=== PATIENT | female | born 1990 | race Two or more races ===

== ENCOUNTER 2023-11-18 11:32 | Emergency (ER) | payer OTHER ==
[~2023-11-18] VITALS: Ht 167.6 cm; Wt 74.8 kg
[2023-11-18 15:10] LABS: HEMATOCRIT 41.7 % (36.0-45.00); HEMOGLOBIN 14.4 g/dL (12.0-15.00); MEAN CELL VOLUME 90.3 fL (80.00-100.00); MEAN CORPUSCULAR HEMOGLOBIN 31.2 pg (27.00-32.0); MEAN CORPUSCULAR HGB CONC 34.5 g/dl (32.0-36.0); PLATELET COUNT 204 K/uL (150-450); RED BLOOD COUNT 4.62 M/uL (4.00-6.00); RED CELL DISTRIBUTION WIDTH 12.2 % (11.5-14.5)
[2023-11-18 15:42] LABS: CALCIUM 9.1 mg/dL (8.5-10.1); CREATININE SERUM 0.69 mg/dL (0.55-1.02); GFR 97.39; POTASSIUM 4.02 mEq/L (3.5-5.1)
[2023-11-18 16:14] LABS: URINE APPEARANCE Clear; URINE BILIRRUBIN Negative (NEGATIVE); URINE BLOOD NHT; URINE COLOR Yellow; URINE GLUCOSE Negative (NEGATIVE); URINE LEUKOCYTE Negative; URINE NITRATE Negative; URINE PROTEIN Negative (NEGATIVE); URINE UROBILINOGEN 0.2 E.U./dl
[2023-11-18 16:18] LABS: URINE BACTERIA 2194.8 uL (0.0-1933); URINE EPITHELIAL CELLS 39.7 uL (0.0-38.8); URINE RBC 7.6 uL (0.0-20.8); URINE WBC 20.8 uL (0.0-23.2)
[2023-11-18] MEDS ORDERED: INTESTINEX680 M1 PO (17:59)
[2023-11-18] MEDS ORDERED: DICY20TA PO (17:59)
[2023-11-18] MEDS ORDERED: PEPCID AC20 MG PO (17:59)
[2023-11-18] MEDS ORDERED: ZOFRAN8 MG PO (17:59)
== END 2023-11-18 18:58 | disposition home or self-care (01) ==
LOC: ER 11:33
PROVIDERS: General Practice
DX: K52.89 Other specified noninfective gastroenteritis and colitis (principal); E86.0 Dehydration